=== PATIENT | female | born 1975 | race Caucasian/White ===

== ENCOUNTER 2020-04-23 20:57 | Emergency (ER) | payer OTHER ==
--- OUTSIDE RECORDS SUMMARY | 2020-04-23 20:58 | XMS REPORT | Continuity of Care Document ---
:1975 Author Organization [facility] t Address [address] [place] [id number] Care Team Providers Name Role Phone Unavailable Unavailable Unavailable Problems Condition Condition Condition Status Onset Resolution Last Treating Co mments Source Name Details Category Date Date Treatment Clinician Date Female Female Problem Active [facility] stress Stress 2-20 da incontinen Incontinen 00:00: Me dical ce ce 00 Group Postsurgic Postsurgic Problem Active M [facility] al al 2-20 da menopause Menopause 00:00: Medi rk 00 Group Screening Screening Problem Active [facility] for for 2-15 da malignant Malignant 00:00: Medi rk neoplasm Neoplasm 00 Group of breast of Breast Allergies, Adverse Reactions, Alerts This patient has no known allergies or adverse reactions. Social History Smoking Status Start Date Stop Date Source Former Smoker [facility] Medications Ordered Filled Start Stop Current Ordering Indication Dosage Frequency Signature Comments Components Source Medication Medication Date Date Medication? Clinician (SIG) Name Name Elmiron 100 Elmiron 100 No Elmiron [facility] mg capsule mg capsule 100 mg d a Take 1 Take 1 capsule Medical capsule 3 capsule 3 Take 1 Gerardo up times a day times a day capsule 3 by oral by oral times a route for route for day by 30 days. 30 days. oral route for 30 days. ospemifene ospemifene No 1 Q1D ospemifene [facility] 60 mg 60 mg 60 mg da tablet Take tablet Take tablet Medical 1 tablet 1 tablet Take 1 Group every day every day tablet by oral by oral every day route. route. by oral route. paroxetine paroxetine No paroxetine [facility] 10 mg 10 mg 10 mg da tablet Take tablet Take tablet Medical 1 tablet 1 tablet Take 1 Group every day every day tablet by oral by oral every day route. route. by oral route. Vital Signs Vital Name Observation Time Observation Value Comments Source BP Diastolic 2019-03-31 00:00:00 74 mm[Hg] [facility] Height 2019-03-31 00:00:00 61 [in_i] [facility] BMI (Body Mass 2019-03-31 00:00:00 29.1 kg/m2 [facility] Medical Index) Group BP Systolic 2019-03-31 00:00:00 120 mm[Hg] [facility] Body Weight 2019-03-31 00:00:00 154 [lb_av] [facility] BP Diastolic 2019-03-02 00:00:00 84 mm[Hg] [facility] Height 2019-03-02 00:00:00 61 [in_i] [facility] BMI (Body Mass 2019-03-02 00:00:00 29.8 kg/m2 [facility] Medical Index) Group BP Systolic 2019-03-02 00:00:00 139 mm[Hg] [facility] Body Weight 2019-03-02 00:00:00 157.5 [facility]lb_av] [facility] Procedures Procedure Date / Time Performed Performing Clinician [facility] Removal of Ovary(s) 2015-07-15 [facility] Cholecyst[facility] 2014-07-15 00:00:00 [facility] Hysterectomy 2013-07-15 00:00:00 [facility] Plan of Care Planned Activity Planned Date Details Comments Source Diagnostic Test 2019-03-31 antibiotic [facility] 00:00:00 sensitivity testing, Group isolate [code = antibiotic sensitivity testing, isolate] Diagnostic Test 2019-03-31 culture (colony [facility] Pending 00:00:00 count), urine [code = Group culture (colony count), urine] Diagnostic Test 2019-03-31 urinalysis, dipstick [facility] Pending 00:00:00 [code = urinalysis, Group dipstick] Encounters Start End Encounter Admission Attending Care Care Encounter Source Date/Time Date/Time Type Type Clinicians Facility Department ID 2019-03-31 2019-03-31 [facility] [place] - [id number] [facility] 00:00:00 00:00:00 [facility] [place]: [address] [facility] [address], [place] [address] , Ph. [phone] 2019-03-02 2019-03-02 [facility] [place] - [id number] M abdullahi 00:00:00 00:00:00 Basil Delacruz, [facility] [place]: [address] [facility] [address], [place] [address] , Ph. [phone] Results Test Description Test Time Test Comments Results Result Comments Source Victor count [#/volume] in Urine 2019-04-03 00:00:00 Test Item Value Reference Range Interpretation Comme nts group B streptococcus (gbs) by real-time PCR (test code = group B n egative streptococcus (gbs) by real-time PCR) escherichia coli by real-time PCR (test code = escherichia coli by negative real-time PCR) proteus mirabilis by real-time PCR (test code = proteus mirabilis b y negative real-time PCR) staphylococcus saprophyticus by real-time PCR (test code = negative staphylococcus saprophyticus by real-time PCR) enterococcus faecalis by real-time PCR (test code = enterococcus ne gative faecalis by real-time PCR) enterococcus faecium by real-time PCR (test code = enterococcus neg ative faecium by real-time PCR) klebsiella species by real-time PCR (reflex to speciation by negati ve pyrosequencing) (test code = klebsiella species by real-time PCR (reflex to speciation by pyrosequencing)) pseudomonas aeruginosa by real-time PCR (test code = pseudomonas ne gative aeruginosa by real-time PCR) [facility]
[2020-04-23] MEDS ORDERED: NA CHLORIDE 0.9% 1,000 ML ONE (21:39)
[2020-04-23] MEDS ORDERED: FENTANYL CITR 100 MCG/2 ML ONE (21:39)
[2020-04-23 21:50] LABS: Urine Blood 3+ (NEG); Urine Glucose NEGATIVE (NEG); Urine Protein NEGATIVE (NEG); Urine Specific Gravity 1.015 (1.005-1.030); Urine pH 5.5 (5.0-7.0)
[2020-04-23 21:54] LABS: Urine Bacteria <20 /HPF (<20); Urine Culture Reflex Order NOT NEEDED; Urine RBC >50 /HPF (NONE SEEN)
[2020-04-23 21:56] LABS: Absolute Lymphocytes (CBC) 3.2 K/uL (0.7-4.9); Basophils % 0.8 % (0-1.3); Hematocrit 34.7 % (36.0-45.0); Lymphocytes % 25.4 % (15.3-44.8); MPV 6.7 fL (7.6-11.3); RBC Red Blood Cell Count 4.15 M/uL (3.86-4.86)
[2020-04-23 22:15] LABS: Albumin 3.6 g/dL (3.4-5.0); Bilirubin Direct 0.1 mg/dL (0-0.2); Bilirubin Total 0.4 mg/dL (0.2-1.0); Potassium 3.8 mmol/L (3.5-5.1); Protein, Total 8.6 g/dL (6.4-8.2)
[2020-04-24] MEDS ORDERED: NA CHLORIDE 0.9% 1,000 ML ONE (00:32)
[2020-04-24] MEDS ORDERED: SIMETHICONE 80 MG TAB ONE (00:32)
[2020-04-24] MEDS ORDERED: FENTANYL CITR 100 MCG/2 ML ONE (00:32)
--- NOTE | 2020-04-24 01:23 | ER ---
Nurse's Notes [facility] Name: Ling Kolb Age: 44 yrs Sex: Female : 1975 Arrival Date: 04/23/2020 Time: 20:59 Bed 13 Private MD: Diagnosis: Unspecified renal colic-with hematuria;Abdominal and pelvic pain-improving microperforation and abscess of diverticula Presentation: 04/23 21:14 Chief complaint: Patient states: "I was here for 2 weeks with diverticulitis. jd3 I had a burning sensation on my left side and around into my back. It got worse today.". Coronavirus screen: At this time, the client does not indicate any symptoms associated with coronavirus-19. Ebola Screen: Patient negative for fever greater than or equal to 101.5 degrees Fahrenheit, and additional compatible Ebola Virus Disease symptoms. Initial Sepsis Screen: Does the patient meet any 2 criteria? No. Patient's initial sepsis screen is negative. Does the patient have a suspected source of infection? No. Patient's initial sepsis screen is negative. Risk Assessment: Do you want to hurt yourself or someone else? Patient reports no desire to harm self or others. Onset of symptoms was April 23, 2020. 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 - Social history:: Smoking status: Patient/guardian denies using tobacco, Stopped _ months ago 1. Screenin:26 Abuse screen: Denies threats or abuse. Nutritional screening: No deficits noted. jd3 Tuberculosis screening: No symptoms or risk factors identified. Fall Risk Ambulatory Aid- None/Bed Rest/Nurse Assist (0 pts). Gait- Normal/Bed Rest/Wheelchair (0 pts) Mental Status- Oriented to own ability (0 pts). Total Hernandez Fall Scale indicates No Risk (0-24 pts). Assessment: 21:14 General: Appears in no apparent distress. uncomfortable, Behavior is calm, cooperative, jd3 appropriate for age. Pain: Complains of pain in left lower quadrant Pain radiates to back Quality of pain is described as radiating, sharp, Is continuous. Neuro: Level of Consciousness is awake, alert, obeys commands, Oriented to person, place, time, situation. Cardiovascular: Denies chest pain, Capillary refill < 3 seconds Patient's skin is warm and dry. Respiratory: Airway is patent Respiratory effort is even, unlabored, Respiratory pattern is regular, symmetrical, Denies cough, shortness of breath. GI: Abdomen is round non-distended, Bowel sounds present X 4 quads. Abd is soft X 4 quads Abdomen is tender to palpation X 4 quads. Reports lower abdominal pain, upper abdominal pain. : No signs and/or symptoms were reported regarding the genitourinary system. EENT: No signs and/or symptoms were reported regarding the EENT system. Derm: Skin is intact, Skin is dry, Skin is normal, Skin temperature is warm. Musculoskeletal: Circulation, motion, and sensation intact. Range of motion: intact in all extremities. 22:08 Reassessment: Patient appears in no apparent distress at this time. Patient and/or cm7 family updated on plan of care and expected duration. Pain level reassessed. Patient is alert, oriented x 3, equal unlabored respirations, skin warm/dry/pink. States pain in back gone, mainly just has the burning to left lower abdomen Patient states feeling better. 23:25 Reassessment: Patient appears in no apparent distress at this time. Patient and/or jd3 family updated on plan of care and expected duration. Pain level reassessed. Patient is alert, oriented x 3, equal unlabored respirations, skin warm/dry/pink. 04/24 00:51 Reassessment: Patient and/or family updated on plan of care and expected duration. Pain bb level reassessed. Patient is alert, oriented x 3, equal unlabored respirations, skin warm/dry/pink. pt states pain is 3/10 and is much better than before Patient states feeling better. Vital Signs: 04/23 21:18 BP 111 / 67; Pulse 100; Resp 18 S; Temp 98.2(O); Pulse Ox 99% on R/A; Weight 71.67 kg jd3 (R); Height 5 ft. 8 in. (172.72 cm) (R); Pain 6/10; 22:10 BP 99 / 60; Pulse 85; Pulse Ox 97% ; Pain 3/10; cm7 23:25 BP 94 / 62; Pulse 83; Resp 17 S; Pulse Ox 100% on R/A; jd3 04/24 00:53 BP 102 / 54; Pulse 77; Resp 14 S; Pulse Ox 98% on R/A; Pain 3/10; bb 01:35 BP 103 / 56; Pulse 78; Resp 16; Temp 97.9; Pulse Ox 100% ; Pain 3/10; tl1 04/23 21:18 Body Mass Index 24.02 (71.67 kg, 172.72 cm) jd3 ED Course: 04/23 20:59 Patient arrived in ED. ag3 21:02 [facility]en [facility]-C [facility]. snw 21:02 Carlos Alberto Hurtado MD is Attending Physician. snw 21:14 Olegario Bloom, SANDI is Primary Nurse. jd3 21:17 Triage completed. jd3 21:19 Arm band placed on. jd3 21:40 Urine collected: clean catch specimen, clear, hawk colored. jp3 21:44 Inserted saline lock: 20 gauge in left antecubital area, using aseptic technique. Blood jp3 collected. 21:44 Initial lab(s) drawn, by me, sent to lab. First set of blood cultures drawn by me. jp3 Patient maintains SpO2 saturation greater than 95% on room air. 21:48 Bed in low position. Call light in reach. Side rails up X 1. Warm blanket given. Verbal jp3 reassurance given. Pulse ox on. NIBP on. 22:00 Second set of blood cultures drawn by me. jp3 23:26 CT Abd/Pelvis - IV Contrast Only In Process Unspecified. EDMS 04/24 00:32 Report given to Marizol JUNIOR. jd3 01:22 Trace Lafleur MD is Referral Physician. tw4 01:36 No provider procedures requiring assistance completed. IV discontinued, intact, tl1 bleeding controlled, No redness/swelling at site. Pressure dressing applied. Administered Medications: 04/23 21:48 Drug: fentaNYL (PF) 50 mcg Route: IVP; Site: left antecubital; cm7 04/24 00:52 Follow up: Response: No adverse reaction bb 04/23 21:50 Drug: NS 0.9% 1000 ml Route: IV; Rate: 1 bolus; Site: left antecubital; cm7 04/24 00:25 Follow up: IV Status: Completed infusion; IV Intake: 1000ml tl1 00:24 Drug: NS 0.9% 1000 ml Route: IV; Rate: 1 bolus; Site: left antecubital; tl1 01:34 Follow up: IV Status: Order to discontinue infusion; IV Intake: 500ml tl1 00:25 Drug: fentaNYL (PF) 50 mcg {Note: RASS 0.} Route: IVP; Site: left antecubital; 00:52 Follow up: Response: No adverse reaction; Pain is decreased bb 01:34 Follow up: Response: No adverse reaction; Marked relief of symptoms; Pain is decreased tl1 00:25 Drug: Simethicone 240 mg Route: PO; tl1 00:52 Follow up: Response: No adverse reaction bb 01:35 Follow up: Response: No adverse reaction; No change in condition tl1 Intake: 00:25 IV: 1000ml; Total: 1000ml. tl1 01:34 IV: 500ml; Total: 1500ml. tl1 Outcome: 01:22 Discharge ordered by . tw4 01:36 Discharged to home ambulatory, with family. tl1 01:36 Condition: improved 01:36 Discharge instructions given to patient, Instructed on discharge instructions, follow up and referral plans. medication usage, Demonstrated understanding of instructions, follow-up care, medications, Prescriptions given X 1. 01:37 Patient left the ED. tl1 Signatures: Dispatcher [employer] EDMS Kendy Keen, LINE SUPPLY-C LINE SUPPLY-Csnw Marizol Stewart RN RN bb Shikha Beauchamp RN RN tl1 Olegario Bloom RN RN jd3 Wadley, Terrence, MD MD tw4 Judson Greenberg Alice ag3 Moore, Cynthia cm7
--- NOTE | 2020-04-24 01:23 | EDPHYS ---
Physician Documentation [facility] Name: Ling Kolb Age: 44 yrs Sex: Female : 1975 Arrival Date: 04/23/2020 Time: 20:59 Bed 13 Private MD: SUGEY Physician Carlos Alberto Hurtado HPI: 04/23 21:40 This 44 yrs old Female presents to ER via Wheelchair with complaints of Back snw Pain. 21:40 The patient presents with abdominal pain in the left lower quadrant. Onset: The snw symptoms/episode began/occurred 3 week(s) ago, area improved and got better. 2 days ago pt started having a pulling/burning sensation to LLQ. today with temp of 100, pulling sensation more pronounced, burning with urination. The symptoms radiate to left back. The symptoms are described as burning, pulling sensation. Severity of pain: At its worst the pain was severe. intermittently over the past 3 weeks.. The patient has been recently seen by a physician: Dr. Lafleur with similar presenting complaints, and apparently given a diagnosis of perforated diverticulum with abscess. 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 - Social history:: Smoking status: Patient/guardian denies using tobacco, Stopped _ months ago 1. ROS: 21:39 Constitutional: Negative for fever, chills, and weight loss, Eyes: Negative for injury, snw pain, redness, and discharge, ENT: Negative for injury, pain, and discharge, Neck: Negative for injury, pain, and swelling, Cardiovascular: Negative for chest pain, palpitations, and edema, Respiratory: Negative for shortness of breath, cough, wheezing, and pleuritic chest pain, : Negative for injury, bleeding, discharge, and swelling, dysuria MS/Extremity: Negative for injury and deformity, Skin: Negative for injury, rash, and discoloration, Neuro: Negative for headache, weakness, numbness, tingling, and seizure, Psych: Negative for depression, anxiety, suicide ideation, homicidal ideation, and hallucinations. 21:39 Abdomen/GI: Positive for abdominal pain, nausea, of the left lower quadrant. 21:39 Back: Positive for radiated pain. Exam: 21:38 Constitutional: This is a well developed, well nourished patient who is awake, alert, snw and in no acute distress. Head/Face: Normocephalic, atraumatic. Eyes: Pupils equal round and reactive to light, extra-ocular motions intact. Lids and lashes normal. Conjunctiva and sclera are non-icteric and not injected. Cornea within normal limits. Periorbital areas with no swelling, redness, or edema. ENT: Nares patent. No nasal discharge, no septal abnormalities noted. Tympanic membranes are normal and external auditory canals are clear. Oropharynx with no redness, swelling, or masses, exudates, or evidence of obstruction, uvula midline. Mucous membranes moist. Neck: Trachea midline, no thyromegaly or masses palpated, and no cervical lymphadenopathy. Supple, full range of motion without nuchal rigidity, or vertebral point tenderness. No Meningismus. Chest/axilla: Normal chest wall appearance and motion. Nontender with no deformity. No lesions are appreciated. Cardiovascular: Regular rate and rhythm with a normal S1 and S2. No gallops, murmurs, or rubs. Normal PMI, no JVD. No pulse deficits. Respiratory: Lungs have equal breath sounds bilaterally, clear to auscultation and percussion. No rales, rhonchi or wheezes noted. No increased work of breathing, no retractions or nasal flaring. Abdomen/GI: Soft, tender left lower quad, with normal bowel sounds. No distension or tympany. Positive guarding, no rebound. Back: No spinal tenderness. No costovertebral tenderness. Full range of motion. Skin: Warm, dry with normal turgor. Normal color with no rashes, no lesions, and no evidence of cellulitis. MS/ Extremity: Pulses equal, no cyanosis. Neurovascular intact. Full, normal range of motion. Neuro: Awake and alert, GCS 15, oriented to person, place, time, and situation. Cranial nerves II-XII grossly intact. Motor strength 5/5 in all extremities. Sensory grossly intact. Cerebellar exam normal. Normal gait. Psych: Awake, alert, with orientation to person, place and time. Behavior, mood, and affect are within normal limits. Vital Signs: 21:18 BP 111 / 67; Pulse 100; Resp 18 S; Temp 98.2(O); Pulse Ox 99% on R/A; Weight 71.67 kg jd3 (R); Height 5 ft. 8 in. (172.72 cm) (R); Pain 6/10; 22:10 BP 99 / 60; Pulse 85; Pulse Ox 97% ; Pain 3/10; cm7 23:25 BP 94 / 62; Pulse 83; Resp 17 S; Pulse Ox 100% on R/A; jd3 04/24 00:53 BP 102 / 54; Pulse 77; Resp 14 S; Pulse Ox 98% on R/A; Pain 3/10; bb 01:35 BP 103 / 56; Pulse 78; Resp 16; Temp 97.9; Pulse Ox 100% ; Pain 3/10; tl1 04/23 21:18 Body Mass Index 24.02 (71.67 kg, 172.72 cm) j MDM: 04/23 21:03 Patient medically screened. snw 23:50 Data reviewed: vital signs, nurses notes. Data interpreted: Pulse oximetry: on room air snw is 100 %. Interpretation: normal. Counseling: I had a detailed discussion with the patient and/or guardian regarding: the historical points, exam findings, and any diagnostic results supporting the discharge/admit diagnosis, lab results, radiology results, the need for outpatient follow up. Response to treatment: the patient's symptoms have markedly improved after treatment, pain decreased. Pt states this pain is new/different, discussed pro and con of repeat CT. Pt wants CT. +3 blood in urine, no uterus, no hx of renal calculi but pt was on TPN recently for a week while hospitalized. Awaiting CT results. 04/23 21:13 Order name: Basic Metabolic Panel; Complete Time: 22:39 snw 04/23 21:13 Order name: CBC with Diff; Complete Time: 22:39 snw 04/23 21:13 Order name: Hepatic Function; Complete Time: 22:39 snw 04/23 21:13 Order name: Lipase; Complete Time: 22:39 snw 04/23 21:13 Order name: Urine Culture [facility] 04/23 21:13 Order name: Urine Microscopic Only; Complete Time: 22:02 snw 04/23 21:13 Order name: Blood Culture Adult (2) [facility] 04/23 21:43 Order name: Urine Dipstick--Ancillary (enter results); Complete Time: 22:02 tt3 04/23 22:43 Order name: CT Abd/Pelvis - IV Contrast Only [facility] 04/23 21:13 Order name: Labs collected and sent; Complete Time: 21:48 snw 04/23 21:13 Order name: Urine Dipstick-Ancillary (obtain specimen); Complete Time: 21:48 snw Administered Medications: 21:48 Drug: fentaNYL (PF) 50 mcg Route: IVP; Site: left antecubital; [facility] 04/24 00:52 Follow up: Response: No adverse reaction 04/23 21:50 Drug: NS 0.9% 1000 ml Route: IV; Rate: 1 bolus; Site: left antecubital; [facility] 04/24 00:25 Follow up: IV Status: Completed infusion; IV Intake: 1000ml tl1 00:24 Drug: NS 0.9% 1000 ml Route: IV; Rate: 1 bolus; Site: left antecubital; tl1 01:34 Follow up: IV Status: Order to discontinue infusion; IV Intake: 500ml tl1 00:25 Drug: fentaNYL (PF) 50 mcg {Note: RASS 0.} Route: IVP; Site: left antecubital; bb 00:52 Follow up: Response: No adverse reaction; Pain is decreased bb 01:34 Follow up: Response: No adverse reaction; Marked relief of symptoms; Pain is decreased tl1 00:25 Drug: Simethicone 240 mg Route: PO; tl1 00:52 Follow up: Response: No adverse reaction bb 01:35 Follow up: Response: No adverse reaction; No change in condition tl1 Disposition: 20:21 Co-signature as Attending Physician, Carlos Alberto Hurtado MD I agree with the assessment and 4 plan of care. Disposition: 04/24/20 01:22 Discharged to Home. Impression: Unspecified renal colic - with hematuria, Abdominal and pelvic pain - improving microperforation and abscess of diverticula. - Condition is Stable. - Discharge Instructions: Abdominal Pain, Adult, Kidney Stones, Renal Colic, Dietary Guidelines to Help Prevent Kidney Stones, Rehydration, Adult. - Prescriptions for Gas- X - take 1 capsule by ORAL route 2-3 times daily; 1 box. - Medication Reconciliation Form, Thank You Letter, Antibiotic Education, Prescription Opioid Use form. - Follow up: Emergency Department; When: As needed; Reason: Worsening of condition. Follow up: Private Physician; When: 1 - 2 days; Reason: Recheck today's complaints, Continuance of care, Re-evaluation by your physician. Follow up: Trace Lafleur; When: 2 - 3 days; Reason: Recheck today's complaints, Continuance of care, Re-evaluation by your physician. Signatures: Dispatcher [employer] EDMS Kendy Keen, SANIA-C SHINGLE SAWYER-Csnw Marizol Stewart, RN RN bb Shikha Beauchamp RN RN tl1 Olegario Bloom RN RN jCarlos Alberto Donald MD MD tw4 Mary Alarcon cm7 Corrections: (The following items were deleted from the chart) 01:37 01:22 04/24/2020 01:22 Discharged to Home. Impression: Unspecified renal colic - with tl1 hematuria; Abdominal and pelvic pain - improving microperforation and abscess of diverticula. Condition is Stable. Discharge Instructions: Abdominal Pain, Adult, Kidney Stones, Renal Colic, Dietary Guidelines to Help Prevent Kidney Stones, Rehydration, Adult. Prescriptions for Gas-X - take 1 capsule by ORAL route 2-3 times daily; 1 box. and Forms are Medication Reconciliation Form, Thank You Letter, Antibiotic Education, Prescription Opioid Use. Follow up: Emergency Department; When: As needed; Reason: Worsening of condition. Follow up: Private Physician; When: 1 - 2 days; Reason: Recheck today's complaints, Continuance of care, Re-evaluation by your physician. Follow up: Trace Lafleur; When: 2 - 3 days; Reason: Recheck today's complaints, Continuance of care, Re-evaluation by your physician. tw4
[2020-04-24 02:14] VITALS: BP 103/56; TEMP 97.9; O2SAT 100
--- NOTE | 2020-04-25 11:08 | RAD REPORT ---
EXAM DESCRIPTION: CT - Abdomen Pelvis W Contrast - 04/24/2020 6:32 am CLINICAL HISTORY: ABD PAIN TECHNIQUE: Contiguous axial images obtained through the abdomen and pelvis following the uneventful administration of IV contrast. Coronal and sagittal reformatted images were provided. This exam was performed according to our departmental dose-optimization program, which includes autom ated exposure control, adjustment of the mA and/or kV according to patient size and/or use of iterati ve reconstruction technique. COMPARISON: 04/12/2020 FINDINGS: Lung bases: Bibasilar subsegmental atelectasis/pleural parenchymal scar. Liver: The liver is enlarged and mildly diffusely low in density compatible with steatosis. Gallbladder and biliary system: Prior cholecystectomy. Pancreas: Unremarkable Spleen: Splenic parenchymal calcifications compatible with remote granulomatous organism exposure. Adrenals: Unremarkable Kidneys: Normal renal cortical enhancement. 6 mm calculus within the lower pole collecting system on the right. No hydronephrosis. Bowel: Colonic diverticula and segmental thickening of the mid sigmoid colon again demonstrated. Mode rate surrounding infiltrative changes. Ill-defined gas containing collection abutting the sigmoid col on has decreased in size without appreciable residual fluid components now measuring approximately 4 x 3.5 x 3.5 cm (previously 6 x 4 x 5 cm). Moderate stool. No obstruction. Appendix: Normal caliber appendix. No findings to suggest acute appendicitis. Urinary bladder: Unremarkable Reproductive: There has been a hysterectomy. No adnexal cysts or masses are identified. Lymph nodes: No pathologically enlarged lymph nodes. Peritoneum: See above. Vessels: Minimal atherosclerotic disease. No abdominal aortic aneurysm. Abdominal wall: Tiny fat-containing umbilical hernia. Bones: Multilevel spondylosis. No acute fracture. IMPRESSION: 1. Acute sigmoid diverticulitis with microperforation again demonstrated. Previously d emonstrated peridiverticular abscess has decreased in size without appreciable residual fluid compone nts now measuring approximately 4 x 3.5 x 3.5 cm (previously 6 x 4 x 5 cm). 2. Other findings as above. Electronically signed by: Marcela Alonso MD 04/23/2020 11:47 PM CDT Due to temporary technical issues with the PACS/Fluency reporting system, reports are being signed by the in house radiologist without review as a courtesy to ensure prompt reporting. The interpreting r adiologist is fully responsible for the content of the report.
== END 2020-04-24 01:37 | disposition home or self-care (01) ==
LOC: ER 20:57
DX: N20.0 Calculus of kidney (principal); R31.9 Hematuria, unspecified
CPT/HCPCS: 96361; 87040 ×2; 87088; 85025; 87086; 80048; 36415; 80076; 83690; 74177; 96374; 99284; Q9967; J3010 ×2; J7030 ×2; 81003; 81015

== ENCOUNTER 2020-06-13 07:28 | Day surgery (SDC) | payer OTHER, SELFPAY ==
--- OUTSIDE RECORDS SUMMARY | 2020-06-13 07:30 | XMS REPORT | Continuity of Care Document ---
:1975 Author Organization [facility] t Address [address] [place] [address] Care Team Providers Name Role Phone Unavailable [...] Start Date Stop Date Source Former Sm[facility] Medications Ordered Filled Start [...] BMI (Body Mass 2019-03-31 00:00:00 29.1 kg/m2 [facility] BP Systolic 2019-03-31 00:00:00 120 mm[Hg] [facility] Body Weight 2019-03-31 00:00:00 154 [lb_av] [facility] BP Diastolic 2019-03-02 00:00:00 84 mm[Hg] [facility] Height 2019-03-02 00:00:00 61 [in_i] [facility] BMI (Body Mass 2019-03-02 00:00:00 29.8 kg/m2 [facility] BP Systolic 2019-03-02 00:00:00 139 mm[Hg] [facility] Body Weight 2019-03-02 00:00:00 157.5 [lb_av] [facility] Procedures Procedure Date / Time Performed Performing Clinician [facility] e Removal of Ovary(s) 2015-07-15 00:00:00 [facility] Cholecystectomy 2014-07-15 00:00:00 [facility] Hysterectomy 2013-07-15 00:00:00 [facility] Plan of Care Planned Activity Planned Date Details Comments Source Diagnostic Test 2019-03-31 antibiotic [facility] Pending 00:00:00 sensitivity testing, Group isolate [code = antibiotic sensitivity testing, isolate] Diagnostic Test 2019-03-31 culture ([facility] Pending 00:00:00 count), urine [code = Group culture (colony count), urine] Diagnostic Test 2019-03-31 urinalysis, dipstick [facility] Pending 00:00:00 [code = urinalysis, Group dipstick] Encounters Start End Encounter Admission Attending Care Care Encounter Source Date/Time Date/Time Type Type Clinicians Facility Department ID 2019-03-31 2019-03-31 [facility] [place] - [id number] M at[facility] 00:00:00 00:00:00 [facility] [place]: [address], [place] [address] , Ph. [phone] 2019-03-02 2019-03-02 Flor [facility] [place] - [id number] M abdullahi 00:00:00 00:00:00 [facility] MD: [address], [place] [address] , Ph. [phone] Results Test Description Test Time Test Comments Results Result Comments Source [place] count [#/volume] in Urine 2019-04-03 00:00:00 Test [...] pseudomonas ne gative aeruginosa by real-time PCR) [facility]
[2020-06-13] MEDS ORDERED: Ringers Lactate 1,000 ML IV ONE (07:50)
[2020-06-13] MEDS ORDERED: propofoL 200 MG/20 ML VIAL IV ONE ×3 (08:21→09:04)
[2020-06-13] MEDS ORDERED: LIDOCAINE 1% MPF 5 ML VIAL ONE (08:21)
--- NOTE | 2020-06-13 09:02 | ENDO RPT ---
[address], [address] COLONOSCOPY PROCEDURE REPORT EXAM DATE: 06/13/2020 PATIENT NAME: Ling Kolb MR #: [id number] BIRTHDATE: 1975 ATTENDING: Trace Lafelur DR STATUS: outpatient MACHINE PRESERVATIVE FILLER: Harish Verde and Michelle De La Garza RN INDICATIONS: The patient is a 44 yr old Female here for a colonoscopy due to diverticulitis PROCEDURE PERFORMED: Screening Colonoscopy and Colonoscopy MEDICATIONS: Per Anesthesia. ESTIMATED BLOOD LOSS: None CONSENT: The patient understands the risks and benefits of the procedure and understands that these risks include, but are not limited to: sedation, allergic reaction, infection, perforation and/or bleeding. Alternative means of evaluation and treatment include, among others: physical exam, x-rays, and/or surgical intervention. The patient elects to proceed with this endoscopic procedure. DESCRIPTION OF PROCEDURE: During intra-op preparation period all mechanical medical equipment was checked for proper function. Hand hygiene and appropriate measures for infection prevention was taken. Procedure, possible complications, alternatives including, but not limited to possibility of bleeding, perforation, tear, infection, sepsis, need for surgery, need for blood transfusion, were explained to the patient. After the risks, benefits and alternatives of the procedure were thoroughly explained, Informed consent was verified, confirmed and timeout was successfully executed by the treatment team. The patient was placed in the left lateral position. A digital rectal exam was performed and revealed internal hemorrhoids. After appropriate level of anesthesia, the scope was passed. The EC-[id number] ([id number]) and [id number] ([id number]) endoscope was introduced through the anus and advanced to the cecum, which was identified by both the appendix and ileocecal valve. The quality of the prep was fair. The instrument was then slowly withdrawn as the colon was fully examined. Scope withdrawal time was 10 minutes. COLON FINDINGS: There was moderate diverticulosis noted in the sigmoid colon with associated tortuosity, angulation, colonic narrowing, petechiae and luminal narrowing. No bleeding was noted from the diverticulosis. Small internal hemorrhoids were found. Retroflexed views revealed no abnormalities. The scope was then completely withdrawn from the patient and the procedure terminated. ADVERSE EVENTS: There were no complications. IMPRESSIONS: 1. There was moderate diverticulosis noted in the sigmoid colon 2. Small internal hemorrhoids RECOMMENDATIONS: 1. avoid NSAIDS for 2 weeks 2. follow-up: office 1 month(s) 3. Monitor for any evidence of rectal bleeding. 4. yearly hemoccult starting in 4 years 5. hemorrhoidal hygiene 6. increase dietary water 7. low fiber / diverticular diet RECALL: Trace Lafleur DR eSigned: Trace Lafleur DR 06/13/2020 9:02 AM cc: CPT CODES: ICD9 CODES: PATIENT NAME: Ling Kolb MR#: [id number]
[2020-06-13 09:24] VITALS: BP 106/60; O2SAT 100
[2020-06-13 10:00] VITALS: TEMP 96.8
== END 2020-06-13 09:47 | disposition home health service (06) ==
LOC: OR 07:28
PROVIDERS: ATTEND Surgery
PROC: 0DJD8ZZ Inspection of Lower Intestinal Tract, Via Natural or Artificial Opening Endoscopic (ICD-10-PCS; principal; 2020-06-13 08:30)
DX: K57.92 Diverticulitis of intestine, part unspecified, without perforation or abscess without bleeding (principal); K57.30 Diverticulosis of large intestine without perforation or abscess without bleeding; K64.8 Other hemorrhoids; K56.699 Other intestinal obstruction unspecified as to partial versus complete obstruction; R23.3 Spontaneous ecchymoses; Z20.828 Contact with and (suspected) exposure to other viral communicable diseases
CPT/HCPCS: 45378; U0002; J7120; J2704